=== PATIENT | female | born 1980 | race African-American/Black ===

== ENCOUNTER 2020-12-17 11:27 | Emergency (ER) | payer MEDICAID ==
[~2020-12-17] VITALS: Ht 160 cm; Wt 87.1 kg
[2020-12-17] MEDS ORDERED: cloNIDine HCL 0.1 MG TAB ONE (11:37)
[2020-12-17] MEDS ORDERED: cloNIDine HCL 0.1 MG TAB PO ONE (11:45)
[2020-12-17] MEDS ORDERED: LIDOCAINE 1% HCL (LOCAL ANESTH.) INJ 20ML MDV IJ ONE (13:15)
[2020-12-17] MEDS ORDERED: cefTRIAXone SOD 1,000 MG VL ONE (13:29)
[2020-12-17] MEDS ORDERED: cefTRIAXone W LIDOCAINE 1 GM IM IM ONE (13:30)
[2020-12-17 13:52] VITALS: BP 160/90
== END 2020-12-17 13:58 | disposition home or self-care (01) ==
LOC: ER 11:27
DX: N61.1 Abscess of the breast and nipple (principal); I10 Essential (primary) hypertension; E11.9 Type 2 diabetes mellitus without complications; Z88.6 Allergy status to analgesic agent
CPT/HCPCS: 10060; 87205; 96372; 99283; J0696; J2001

== ENCOUNTER 2020-12-19 12:22 | Emergency (ER) | payer MEDICAID ==
[~2020-12-19] VITALS: Ht 160 cm; Wt 87.1 kg
[2020-12-19 12:35] VITALS: BP 167/93
== END 2020-12-19 15:12 | disposition home or self-care (01) ==
LOC: ER 12:23
DX: N61.1 Abscess of the breast and nipple (principal); E11.9 Type 2 diabetes mellitus without complications; I10 Essential (primary) hypertension; Z88.5 Allergy status to narcotic agent; Z04.81 Encounter for examination and observation of victim following forced sexual exploitation

== ENCOUNTER 2020-12-24 11:53 | Emergency (ER) | payer MEDICAID ==
[~2020-12-24] VITALS: Ht 160 cm; Wt 87.1 kg
[2020-12-24 13:25] VITALS: BP 155/92
== END 2020-12-24 13:29 | disposition home or self-care (01) ==
LOC: ER 11:53
DX: N61.1 Abscess of the breast and nipple (principal); Z48.00 Encounter for change or removal of nonsurgical wound dressing; Z88.6 Allergy status to analgesic agent

== ENCOUNTER 2021-09-10 17:35 | Inpatient (IN) | payer MEDICAID ==
[~2021-09-10] VITALS: Ht 157.5 cm; Wt 87.1 kg
[2021-09-10 19:17] LABS: Basophils # (auto) 0 10 ^3/uL (0-0.2); Basophils % (auto) 0.5 % (0.0-2.0); Eosinophils # (auto) 0.1 10 ^3/uL (0-0.8); Eosinophils % (auto) 1.8 % (0.0-7.0); Hematocrit 32.2 % (36.0-46.0); Hemoglobin 11.1 g/dL (12.2-16.2); Lymphocytes # (auto) 2.9 10 ^3/uL (0.4-5.4); Lymphocytes % (auto) 39.8 % (10.0-50.0); Mean Corpuscular Hemoglobin 29.7 pg (28.0-32.0); Mean Corpuscular Hgb Conc. 34.6 g/dL (32.0-36.0); Mean Corpuscular Volume 85.9 fL (80.0-100.0); Monocytes # (auto) 0.4 10 ^3/uL (0-1.3); Monocytes % (auto) 6.2 % (0.0-12.0); Neutrophils # (auto) 3.7 10 ^3/uL (1.6-8.6); Neutrophils % (auto) 51.7 % (37.0-80.0); Nucleated Red Blood Cells % 0.1 %; Red Blood Cells 3.74 10^6/uL (4.0-5.20); Red Cell Distribution Width 12.8 % (11.8-14.3); White Blood Cell 7.2 10^3/uL (4.4-10.8)
[2021-09-10 19:33] LABS: Albumin 3.3 g/dL (3.4-5.0); Calcium 8.2 mg/dL (8.5-10.1); Potassium 3.7 mmol/L (3.5-5.1)
[2021-09-10 19:55] LABS: BUN/Creatinine Ratio 17.2; Bilirubin, Total 0.5 mg/dL (0.2-1.0); Total Protein 7.2 g/dL (6.4-8.2)
[2021-09-10 22:51] LABS: Urine Bacteria FEW /hpf (None Seen); Urine Blood 1+ /uL (Negative); Urine Specific Gravity 1.029 (1.001-1.035); Urine WBC 27 /hpf (0 - 5)
[2021-09-11] MEDS ORDERED: cefTRIAXone W LIDOCAINE 1 GM IM IM ONE (09:00)
[2021-09-11] MEDS ORDERED: cefTRIAXone 1GM/50ML D5W 50 ML IV ONE (10:30)
[2021-09-11] MEDS ORDERED: ASPirin 81 mg TAB PO ONE (12:45)
[2021-09-11] MEDS ORDERED: ATORVASTATIN 20 MG TAB PO ONE (12:45)
[2021-09-11] MEDS ORDERED: DEXTROSE (50%) 50ML SYRG IV PRN (12:45)
[2021-09-11] MEDS ORDERED: LORazepam 2MG/ML-1ML VIAL IV PRN (13:45)
[2021-09-11] MEDS ORDERED: ACETAMINOPHEN 500 MG TAB PO ONE (14:30)
[2021-09-11] MEDS ORDERED: HYDROcodone-ACET 10/325MG TAB PO ONE (16:00)
[2021-09-11] MEDS: ACCU-CHEK COMFORT CURVE STRIP VI SCH ×2 (17:05→23:55)
[2021-09-11] MEDS: InsuLIN REG 1unit/0.01ml Soln (100units/ml) SC SCH (17:14)
[2021-09-11 17:35] LABS: Cholesterol 169 mg/dL (< 200); HDL Cholesterol 39 mg/dL (40-59); LDL Cholesterol 104 mg/dL (< 100); Triglycerides 107 mg/dL (< 150)
[2021-09-11] MEDS ORDERED: MORPHINE SULFATE INJECTION 2 MG/ML SYRG IV PRN (22:45)
[2021-09-11] MEDS ORDERED: NITROGLYCERIN 0.4 MG SL TAB SL PRN (22:45)
[2021-09-12] MEDS: InsuLIN REG 1unit/0.01ml Soln (100units/ml) SC SCH ×5 (00:36→22:20)
[2021-09-12 05:00] VITALS: BP 143/95
[2021-09-12] MEDS: ACCU-CHEK COMFORT CURVE STRIP VI SCH ×4 (05:48→22:01)
[2021-09-12] MEDS ORDERED: CHLO250S PO (05:53)
[2021-09-12] MEDS ORDERED: GLIM4TAB42 PO (05:53)
[2021-09-12] MEDS ORDERED: LOSA-69 PO (05:53)
[2021-09-12 08:32] VITALS: BP 154/94
[2021-09-12] MEDS: ASPirin 81 mg TAB PO SCH (10:19)
[2021-09-12 12:24] LABS: Basophils # (auto) 0 10 ^3/uL (0-0.2); Basophils % (auto) 0.3 % (0.0-2.0); Eosinophils # (auto) 0 10 ^3/uL (0-0.8); Eosinophils % (auto) 0.4 % (0.0-7.0); Hematocrit 32.3 % (36.0-46.0); Hemoglobin 11.2 g/dL (12.2-16.2); Lymphocytes # (auto) 3.2 10 ^3/uL (0.4-5.4); Lymphocytes % (auto) 32.6 % (10.0-50.0); Mean Corpuscular Hemoglobin 29.7 pg (28.0-32.0); Mean Corpuscular Hgb Conc. 34.7 g/dL (32.0-36.0); Mean Corpuscular Volume 85.5 fL (80.0-100.0); Monocytes # (auto) 0.7 10 ^3/uL (0-1.3); Monocytes % (auto) 6.9 % (0.0-12.0); Neutrophils # (auto) 5.9 10 ^3/uL (1.6-8.6); Neutrophils % (auto) 59.8 % (37.0-80.0); Nucleated Red Blood Cells % 0.1 %; Red Blood Cells 3.77 10^6/uL (4.0-5.20); Red Cell Distribution Width 12.5 % (11.8-14.3)
[2021-09-12 12:33] LABS: INR 1.02 (0.9-1.15); Partial Thromboplastin Time 25.4 sec (23.6-33.0)
[2021-09-12 12:36] LABS: Potassium 3.4 mmol/L (3.5-5.1)
[2021-09-12 12:52] LABS: Albumin 3.1 g/dL (3.4-5.0); BUN/Creatinine Ratio 18.6; Bilirubin, Total 0.5 mg/dL (0.2-1.0); Calcium 8.4 mg/dL (8.5-10.1); Magnesium 2.4 mg/dL (1.6-2.6); Total Protein 7.1 g/dL (6.4-8.2)
[2021-09-12 13:00] VITALS: BP 139/94
[2021-09-12 13:39] LABS: % Iron Saturation 18.4 % (15-50)
[2021-09-12] MEDS ORDERED: POTASSIUM CHL 20 Meq TABLET PO ONE (15:30)
[2021-09-12] MEDS: hydrALAZINE HCL 20 MG/ML VL IV PRN ×2 (16:59→23:17)
[2021-09-12 17:00] VITALS: BP 172/92
[2021-09-12] MEDS ORDERED: ACETAMINOPHEN 500 MG TAB PO PRN (18:30)
[2021-09-12] MEDS ORDERED: LOSARTAN POTASSIUM 50 MG TAB PO ONE (18:30)
[2021-09-12] MEDS: HYDROcodone-ACET 5/325MG TAB PO PRN (18:41)
[2021-09-12 20:00] VITALS: BP 176/92
[2021-09-12 22:00] VITALS: BP 176/92
[2021-09-12] MEDS: ATORVASTATIN 20 MG TAB PO SCH (22:01)
[2021-09-13] MEDS ORDERED: ONDANSETRON HCL 4 MG/2 ML VIAL IV PRN (01:45)
[2021-09-13 05:00] VITALS: BP 138/99
[2021-09-13] MEDS: GLIMEPIRIDE 2 MG TAB PO SCH ×2 (06:00→07:00)
[2021-09-13] MEDS: ACCU-CHEK COMFORT CURVE STRIP VI SCH ×4 (06:15→22:08)
[2021-09-13] MEDS: InsuLIN REG 1unit/0.01ml Soln (100units/ml) SC SCH ×4 (06:23→22:13)
[2021-09-13] MEDS: HYDROcodone-ACET 5/325MG TAB PO PRN (06:32)
[2021-09-13 09:00] VITALS: BP 139/88
[2021-09-13] MEDS: ASPirin 81 mg TAB PO SCH (10:11)
[2021-09-13] MEDS: LOSARTAN POTASSIUM 50 MG TAB PO SCH (10:12)
[2021-09-13 13:00] VITALS: BP 134/87
[2021-09-13 17:00] VITALS: BP 187/117
[2021-09-13] MEDS: hydrALAZINE HCL 20 MG/ML VL IV PRN (19:13)
[2021-09-13 20:21] VITALS: BP 141/77
[2021-09-13] MEDS: ATORVASTATIN 20 MG TAB PO SCH (21:13)
[2021-09-13] MEDS: METOPROLOL TARTRATE 25 MG TAB PO SCH (23:30)
[2021-09-14 04:10] VITALS: BP 146/94
[2021-09-14] MEDS: ACCU-CHEK COMFORT CURVE STRIP VI SCH ×4 (06:23→21:50)
[2021-09-14] MEDS: InsuLIN REG 1unit/0.01ml Soln (100units/ml) SC SCH ×4 (06:34→21:59)
[2021-09-14] MEDS: GLIMEPIRIDE 2 MG TAB PO SCH (07:02)
[2021-09-14 09:24] VITALS: BP 123/82
[2021-09-14] MEDS: ASPirin 81 mg TAB PO SCH (09:47)
[2021-09-14] MEDS: LOSARTAN POTASSIUM 50 MG TAB PO SCH (09:47)
[2021-09-14] MEDS: METOPROLOL TARTRATE 25 MG TAB PO SCH ×2 (09:48→21:50)
[2021-09-14 12:57] VITALS: BP 120/85
[2021-09-14] MEDS ORDERED: ASPI1CHW15 PO (13:58)
[2021-09-14] MEDS ORDERED: ATOR20TA50 PO (13:58)
[2021-09-14] MEDS ORDERED: LOSA-69 PO (13:58)
[2021-09-14] MEDS ORDERED: MET25T PO (13:58)
[2021-09-14 17:04] VITALS: BP 125/76
[2021-09-14 19:27] LABS: BUN/Creatinine Ratio 19.3; Calcium 9.1 mg/dL (8.5-10.1); Potassium 3.4 mmol/L (3.5-5.1)
[2021-09-14] MEDS: ATORVASTATIN 20 MG TAB PO SCH (21:49)
[2021-09-14 22:00] VITALS: BP 130/90
[2021-09-15 01:01] LABS: BUN/Creatinine Ratio 18.9; Calcium 8.8 mg/dL (8.5-10.1); Potassium 3.3 mmol/L (3.5-5.1)
[2021-09-15 04:55] VITALS: BP 120/83
[2021-09-15] MEDS: ACCU-CHEK COMFORT CURVE STRIP VI SCH ×3 (06:09→17:00)
[2021-09-15] MEDS: InsuLIN REG 1unit/0.01ml Soln (100units/ml) SC SCH ×3 (06:18→17:00)
[2021-09-15] MEDS: GLIMEPIRIDE 2 MG TAB PO SCH (06:46)
[2021-09-15 08:28] VITALS: BP 141/94
[2021-09-15] MEDS: ASPirin 81 mg TAB PO SCH (09:44)
[2021-09-15] MEDS: LOSARTAN POTASSIUM 50 MG TAB PO SCH (09:44)
[2021-09-15] MEDS: METOPROLOL TARTRATE 25 MG TAB PO SCH (09:45)
[2021-09-15] MEDS ORDERED: POTASSIUM CHL 20 Meq TABLET PO ONE (12:30)
[2021-09-15 12:45] VITALS: BP 119/77
[2021-09-15] MEDS ORDERED: TIMO0.5S32 EACHEYE (14:57)
[2021-09-15] MEDS ORDERED: INSU1INJ19 SC (14:57)
[2021-09-15] MEDS ORDERED: CHLO25TA2 PO (14:57)
[2021-09-15 17:00] VITALS: BP 123/76
[2021-09-15 17:11] VITALS: BP 123/76
== END 2021-09-15 18:25 | disposition home health service (06) | DRG 45 ==
LOC: ER 17:36 → TELE 09-11 22:45 → TELE-EAST 09-12 05:04
PROVIDERS: ADMIT Hospitalist; ATTEND Internal Medicine
DX: I63.9 Cerebral infarction, unspecified (principal); U07.1 COVID-19; E66.01 Morbid (severe) obesity due to excess calories; E78.5 Hyperlipidemia, unspecified; I10 Essential (primary) hypertension; K29.70 Gastritis, unspecified, without bleeding; N39.0 Urinary tract infection, site not specified; K21.9 Gastro-esophageal reflux disease without esophagitis; G83.24 Monoplegia of upper limb affecting left nondominant side; G83.14 Monoplegia of lower limb affecting left nondominant side; Z68.35 Body mass index [BMI] 35.0-35.9, adult; Z82.49 Family history of ischemic heart disease and other diseases of the circulatory system; Z83.3 Family history of diabetes mellitus
CPT/HCPCS: 36415; 70450; 80048; 80053; 80061; 81001; 82306; 82962; 83540; 83550; 83735; 83880; 84100; 84443; 84484; 84550; 84702; 85025; 85379; 85610; 85730; 87426; 93005; 93306; 93886; 94760; 96365; 96372; 97110; 97530; G0378; J0696; J1815; J2405

== ENCOUNTER 2022-04-02 17:44 | Emergency (ER) | payer MEDICAID ==
[~2022-04-02] VITALS: Ht 157.5 cm; Wt 87.7 kg
[2022-04-02 17:44] VITALS: BP 125/92
[~2022-04-02 17:44] MED LIST: ASPI1CHW15 PO; ATOR20TA50 PO; CHLO25TA2 PO; GLIM4TAB42 PO; INSU1INJ19 SC; LOSA-69 PO; MET25T PO; TIMO0.5S32 EACHEYE
[2022-04-02 19:01] LABS: Hemoglobin 9.6 g/dL (12.2-16.2); Lymphocytes # (auto) 4.3 10 ^3/uL (0.4-5.4); Monocytes # (auto) 0.7 10 ^3/uL (0-1.3); Nucleated Red Blood Cells % 0.1 %
[2022-04-02 19:15] LABS: Basophils # (auto) 0 10 ^3/uL (0-0.2); Basophils % (auto) 0.3 % (0.0-2.0); Eosinophils # (auto) 0.3 10 ^3/uL (0-0.8); Eosinophils % (auto) 2.7 % (0.0-7.0); Hematocrit 28.5 % (36.0-46.0); Lymphocytes % (auto) 38.4 % (10.0-50.0); Mean Corpuscular Hemoglobin 28.2 pg (28.0-32.0); Mean Corpuscular Hgb Conc. 33.6 g/dL (32.0-36.0); Mean Corpuscular Volume 83.8 fL (80.0-100.0); Monocytes % (auto) 6.6 % (0.0-12.0); Neutrophils # (auto) 5.8 10 ^3/uL (1.6-8.6); Red Blood Cells 3.41 10^6/uL (4.0-5.20); Red Cell Distribution Width 13.4 % (11.8-14.3); White Blood Cell 11.2 10^3/uL (4.4-10.8)
[2022-04-02 19:18] LABS: Albumin 3.1 g/dL (3.4-5.0); Calcium 8.5 mg/dL (8.5-10.1)
[2022-04-02 19:23] LABS: BUN/Creatinine Ratio 12.5; Bilirubin, Total 0.5 mg/dL (0.2-1.0); Total Protein 6.9 g/dL (6.4-8.2)
[2022-04-02] MEDS ORDERED: POTASSIUM CHL 20 Meq TABLET PO ONE (20:00)
== END 2022-04-02 20:32 | disposition left against medical advice (07) ==
LOC: EDUNIT# 17:44 → EDBD 17:44 → ER 17:44
DX: R56.9 Unspecified convulsions (principal); E11.649 Type 2 diabetes mellitus with hypoglycemia without coma; R42 Dizziness and giddiness; D72.829 Elevated white blood cell count, unspecified; E78.5 Hyperlipidemia, unspecified; Z86.73 Personal history of transient ischemic attack (TIA), and cerebral infarction without residual deficits; Z88.6 Allergy status to analgesic agent
CPT/HCPCS: 36415; 70450; 80053; 82962; 85025; 93005